=== PATIENT | male | born 1965 | race Caucasian/White ===

== ENCOUNTER 2018-01-14 19:09 | Emergency (ER) | payer OTHER ==
[~2018-01-14] VITALS: Ht 175.3 cm; Wt 90.7 kg
[2018-01-14] MEDS ORDERED: FENTANYL 75MCG/HR PATCH TD STA (19:19)
[2018-01-14] MEDS ORDERED: KETOROLAC TROMETHAMINE 60 MG/2 ML VIAL ONE (19:28)
[2018-01-14] MEDS ORDERED: KETOROLAC TROMETHAMINE 60 MG/2 ML VIAL IM ONE (19:30)
== END 2018-01-14 19:46 | disposition home or self-care (01) ==
LOC: ER 19:09
DX: M25.512 Pain in left shoulder (principal)
CPT/HCPCS: 96372; 99282; J1885